=== PATIENT | male | born 1965 | race Caucasian/White ===

== ENCOUNTER → 2017-10-16 | Day surgery (SDC) | payer BC ==
[~2017-10-16] MED LIST: Propofol 200 MG/20 ML SDV IV ONE
[2017-10-16] MEDS: Lactated Ringers 1,000 ML IV SCH (11:27)
--- NOTE | 2017-10-16 14:03 | OR ---
DATE OF OPERATION: 10/16/2017 PREOPERATIVE DIAGNOSIS: FOLLOW UP POLYPS. POSTOPERATIVE DIAGNOSIS: FOLLOW UP POLYPS. SURGEON: Flaco Leblanc MD DESCRIPTION OF PROCEDURE: Full-length colonoscopy. 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 COMPLICATIONS: None. SPECIMEN: None. FINDINGS: 1. Full-length colonoscopy. 2. Todd diverticulosis mild. RECOMMENDATIONS: Follow up colonoscopy in 10 years. INDICATIONS: The patient five years ago, I believe that one polyp removed on colonoscopy. We recommended a five year followup. DESCRIPTION OF PROCEDURE: The patient was prepped and draped, placed in the left lateral decubitus position. A lubricated Olympus colonoscope was inserted and ultimately advanced to the cecum. The patient is very tortuous due to challenging scope, but we were able to safely get into the cecal pouch where we visualized the valve and orifice. Upon withdrawal, throughout the entire length of the colon I found no signs of any polyps, mass, ulceration, bleeding sites, no vascular abnormalities or signs of colitis. The patient does have todd diverticulosis. Very mild in severity even in the sigmoid. No inflammatory changes. The rectal vault was benign. Retroflexion of scope in the rectum showed no anal lesions. Air was suctioned. Scope removed without complication. KASEY/FALGUNI /[id number]
== END ==
LOC: CC.SDS 11:16
PROVIDERS: ATTEND Family Medicine
DX: K57.30 Diverticulosis of large intestine without perforation or abscess without bleeding (principal); E78.5 Hyperlipidemia, unspecified; M19.90 Unspecified osteoarthritis, unspecified site; Z79.82 Long term (current) use of aspirin; Z79.899 Other long term (current) drug therapy; Z86.010 Personal history of colon polyps
CPT/HCPCS: J2704; J7120